=== PATIENT | female | born 1960 | race Caucasian/White ===

== ENCOUNTER 2017-01-30 07:43 | Emergency (ER) | payer OTHER ==
[2017-01-30 07:56] VITALS: BP 188/109
[2017-01-30] MEDS ORDERED: IBUPROFEN 400 MG TABLET PO ONE (08:11)
[2017-01-30] MEDS ORDERED: IBUPROFEN 400 MG TABLET ONE (08:14)
--- NOTE | 2017-01-30 08:24 | ERNOTE ---
Lower Extremity HPI - General Time Seen by Provider: 01/30/17 07:59 Source: patient Exam Limitations: no limitations - Immun/Allergies/Home Medications Immunizations: IMMUNIZATION HX Immunizations Up to Date Yes: unsure History of Influenza Vaccine No Hx Pneumococcal Vaccination No Allergies/Adverse Reactions: Allergies Allergy/AdvReac Type Severity Reaction Status Date / Time Norvasc Allergy Severe Other Uncoded 01/30/17 07:56 Home Medications: HOME MEDICATIONS ALPRAZolam [Xanax] 0.25 mg PO PRN PRN 01/30/17 [Last Taken Unknown] Eplerenone [Inspra] 25 mg PO DAILY 01/30/17 [Last Taken Unknown] Magnesium Oxide 100 mg PO DAILY 01/30/17 [Last Taken Unknown] Multivitamin [Multivitamins] 1 each PO DAILY 01/30/17 [Last Taken Unknown] Granger-3S/Dha/Epa/Fish Oil [Granger-3 Fish Oil 1,200 mg Sfgl] 1 tab PO DAILY [Last Taken Unknown] Prazosin HCl [Minipress] 1 mg PO HS 01/30/17 [Last Taken Unknown] Zinc 100 mg PO DAILY 01/30/17 [Last Taken Unknown] - History of Present Illness Narrative: pt comes into the ER for left hip pain and left knee pain for one week. she states that she has appointments for endocrinology and has seen nephrologists or her HTN. She has HTN and her BP is high today and when I offer her medication to control her BP she adamantly refulses. pain has been there for one week. She is unable to take NSAIDS, she smokes cigarettes Review of Systems - Review of Systems Constitutional: Present: no symptoms reported EYE: Present: no symptoms reported ENT: Present: no symptoms reported Respiratory: Present: no symptoms reported Cardiology: Present: no symptoms reported Gastrointestinal/Abdominal: Present: no symptoms reported Genitourinary: Present: no symptoms reported Musculoskeletal: Present: See HPI Skin: Present: no symptoms reported Neurological: Present: no symptoms reported - Patient's Past Medical History Patient History - Medical: Other Patient History - Cardiac/Respiratory: Hypertension Patient History - Cancer: No Hx of Cancer Patient History - Surgical Procedures: Cataracts Patient History - Other: None LMP (females 10-50): Menopausal - Social History Living Situations: significant other Abuse History: No History of abuse Psych History: No pertinent hx Smoking Status: Current every day smoker Have you smoked in the past 12 months: Yes Do you dip or chew tobacco: No Alcohol Use: occasionally Drug Use: none - Immunizations Immunizations Up to Date: Yes - unsure Hx Pneumococcal Vaccination: No History of Influenza Vaccine: No Physical Exam - Physical Exam General Appearance: Present: wd/wn, alert, no apparent distress Ears, Nose, Throat: Present: normal ENT inspection Neck: Present: normal inspection, nontender Respiratory: Present: no respiratory distress, normal breath sounds, no accessory muscle use, chest nontender, lungs clear Cardiovascular/Chest: Present: regular rate, rhythm, no murmur, normal peripheral pulses Extremity Exam: Present: normal inspection, non-tender, other - she does have some muscle spasm in the left lumbar region. She has full ROM of left hip and knee with no crepitus. No deformities noted on exam of these joints Neurological Exam: Present: alert, oriented, normal mood/affect, no motor/ sensory deficits ED Progress - Vital Signs Patient's Vital Signs:: I have reviewed the patient's vital signs. Vital Signs: Vital Signs 01/30/17 07:49 Temperature 36.7 C Pulse Rate 84 Respiratory 16 Rate Blood Pressure 188/109 O2 Sat by Pulse 95 Oximetry - X-Ray X-Ray #2 X-Ray: lumbosacral - Progress/Reassessment Chief Complaint: Lower Extremity Pain/ Injury Plan - Plan Plan: Patient's x-rays of the lumbosacral spine reveal extensive degenerative joint disease. Left hip x-rays within normal limits. Unfortunately due to her renal status and her hypertension the use of NSAIDs is not warranted or allowed. At this time we will go ahead and offer her Tylenol extra strength 1 tablet every 8 hours for pain and she is to follow-up with a academic manager. Departure Clinical Impression: Degenerative joint disease (DJD) of lumbar spine Qualifiers: Spinal osteoarthritis complication: unspecified spinal osteoarthritis Qualified Code(s): M47.816 - Spondylosis without myelopathy or radiculopathy, lumbar region - Departure Disposition: Home self-care Condition: Good Instructions: Osteoarthritis Additional Instructions: You may take acetaminophen, or Tylenol 500 mg 1 tablet by mouth every 6-8 hours for your pain. Please follow-up with your primary care physician or a academic manager in the area. Referrals: Carey Antony DO [Primary Care Provider] -
[2017-01-30] MEDS ORDERED: ACETAMINOPHEN 500 MG TABLET PO ONE (08:26)
--- OUTSIDE RECORDS SUMMARY | 2017-01-30 08:43 | XMS REPORT | Summary of Care ---
:1960 Author Organization [facility] Address [address] [place] [address] Care Team Providers Name Role Phone Mars Claire Stefano Primary Care Physician Encounter Date(s): 10/21/16 - 10/21/16 [facility], [address] [place] [address]- [facility] Discharge Disposition: Discharged to Home or Self Care Attending Physician: Preston Geiger MD Referring Physician: Preston Geiger MD Vital Signs No data available for this section Problem List Condition Effective Dates Status Health Status Informant Anxiety(Confirmed) Active HYPERTENSION(Confirmed) Active LABYRINTHITIS(Confirmed) Active Allergies, Adverse Reactions, Alerts No Known Medication Allergies Medications Aldactone 25 mg oral tablet 1 tab(s), Oral, Daily, # 30 tab(s), 5 Refill(s), Start Date: 12/20/14 11:49:00 CDT, Pharmacy: [place], [place] Start Date: 12/20/14 Stop Date: 03/04/15 Status: CompletedAldactone 25 mg oral tablet 1 tab(s), Oral, Daily, # 30 tab(s), 6 Refill(s), Start Date: 03/04/15 8:48:29 CDT, Pharmacy: [place], [place] Start Date: 03/04/15 Stop Date: 03/18/15 Status: CompletedAldactone 25 mg oral tablet 1 tab(s), Oral, BID, # 60 tab(s), 4 Refill(s), Start Date: 03/18/15 9:52:35 CDT , Pharmacy: [place], [place] Start Date: 03/18/15 Stop Date: 05/17/15 Status: DiscontinuedALPRAZolam 0.25 mg oral tablet 1 tab(s), Oral, TID, PRN for anxiety, 0 Refill(s), Start Date: 12/20/14 10:45: 00 CDT Start Date: 12/20/14 Status: OrderedamLODIPine 5 mg oral tablet 1 tab(s), Oral, Daily, # 30 tab(s), 5 Refill(s), Start Date: 12/20/14 11:49:00 CDT, Pharmacy: [place], [place] Start Date: 12/20/14 Stop Date: 06/26/15 Status: CompletedB-Complex with B-12 oral tablet 1 tab(s), Oral, Daily, # 30 tab(s), 0 Refill(s), Start Date: 06/26/15 10:14:00 CDT Start Date: 06/26/15 Status: Orderedchlorthalidone 25 mg oral tablet 1 tab(s), Oral, Daily, # 30 tab(s), 5 Refill(s), Start Date: 12/20/14 11:49:00 CDT, Pharmacy: [place] Start Date: 12/20/14 Stop Date: 06/26/15 Status: Completedchlorthalidone 25 mg oral tablet 1 tab(s), Oral, Daily, # 30 tab(s), 6 Refill(s), Start Date: 06/28/15 11:24:00 CDT, Pharmacy: [place] Start Date: 06/28/15 Stop Date: 10/02/16 Status: Completedchlorthalidone 25 mg oral tablet 1 tab(s), Oral, Daily, # 30 tab(s), 6 Refill(s), Start Date: 06/28/15 11:24:00 CDT Start Date: 06/28/15 Stop Date: 06/28/15 Status: DiscontinuedcloNIDine 0.1 mg oral tablet 1 tab(s), Oral, Daily, # 60 tab(s), 0 Refill(s), Start Date: 12/20/14 10:51:00 CDT Start Date: 12/20/14 Stop Date: 12/20/14 Status: Discontinueddigestive enzymes digestive enzymes, 1 tab, Oral, Daily, 0 Refill(s), Compound Start Date: 12/20/14 Stop Date: 06/26/15 Status: Completedeplerenone 25 mg oral tablet 1 tab(s), Oral, BID, # 60 tab(s), 5 Refill(s), Start Date: 06/26/15 10:56:28 CDT , Pharmacy: [place], [place] Start Date: 06/26/15 Stop Date: 07/19/15 Status: Completedeplerenone 25 mg oral tablet 1 tab(s), Oral, BID, # 60 tab(s), 11 Refill(s), Start Date: 07/19/15 8:47:11 [employer]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 , Pharmacy: [place], [place] Start Date: 07/19/15 Status: Orderedeplerenone 25 mg oral tablet 1 tab(s), Oral, Daily, # 30 tab(s), 5 Refill(s), Start Date: 05/16/15 11:49:00 CDT, Pharmacy: [place] Start Date: 05/16/15 Stop Date: 06/26/15 Status: Completedferrochel iron ferrochel iron, 18 mg=, Oral, MonWedFri, 0 Refill(s), Compound Start Date: 06/26/15 Status: OrderedFish Oil 500 mg oral capsule 1 cap(s), Oral, Daily, 0 Refill(s), Start Date: 11/14/14 16:03:00 CDT Start Date: 11/14/14 Stop Date: 06/26/15 Status: Completedfolic acid 0.8 mg oral tablet 1 tab(s), Oral, Daily, # 100 tab(s), 0 Refill(s), Start Date: 06/26/15 10:19:00 CDT Start Date: 06/26/15 Stop Date: 10/02/16 Status: CompletedGABA ZION, 250 mg=, Oral, Daily, 0 Refill(s), Compound Start Date: 02/28/15 Stop Date: 10/02/16 Status: CompletedGarlic 0 Refill(s), Start Date: 11/14/14 10:13:00 CDT Start Date: 11/14/14 Status: OrderedGlucosamine Chondroitin MSM Complex oral tablet 2 tab(s), Oral, Daily, # 90 tab(s), 0 Refill(s), Start Date: 12/20/14 10:48:00 CDT Start Date: 12/20/14 Stop Date: 06/26/15 Status: Completedholy basil holy basil, 400 mg=, Oral, HS, 0 Refill(s), Compound Start Date: 06/26/15 Status: Orderedhydrochlorothiazide 25 mg oral tablet 1 tab(s), Oral, Daily, # 30 tab(s), 0 Refill(s), Start Date: 11/14/14 10:20:00 CDT Start Date: 11/14/14 Stop Date: 11/14/14 Status: CompletedIlevro 0.3% ophthalmic suspension 1 drop(s), Eye-Left, HS, Begin 2 days prior, X 4 week(s), # 2 mL, 0 Refill(s), Start Date: 11/09/16 10:27:00 CDT, Pharmacy: [place], [place] Special Instructions: Begin 2 days prior Start Date: 11/09/16 Stop Date: 12/07/16 Status: OrderedKeflex 500 mg oral capsule 1 cap(s), Oral, QID, # 28 cap(s), 0 Refill(s), Start Date: 06/24/15 6:50:00 CDT , Pharmacy: [place], [place] Start Date: 06/24/15 Stop Date: 10/02/16 Status: Completedlisinopril 20 mg oral tablet 1 tab(s), Oral, Daily, # 30 tab(s), 0 Refill(s), Start Date: 11/14/14 10:21:00 CDT Start Date: 11/14/14 Stop Date: 12/20/14 Status: Completedlosartan 100 mg oral tablet 1 tab(s), Oral, BID, # 60 tab(s), 5 Refill(s), Start Date: 12/20/14 11:49:00 CDT , Pharmacy: [place], [place] Start Date: 12/20/14 Stop Date: 03/25/15 Status: Completedlosartan 25 mg oral tablet 1 tab(s), Oral, BID, # 60 tab(s), 6 Refill(s), Start Date: 03/25/15 10:13:00 CDT , Pharmacy: [place] Start Date: 03/25/15 Stop Date: 06/26/15 Status: Completedlosartan 25 mg oral tablet 1 tab(s), Oral, BID, 6 Refill(s), Start Date: 03/25/15 10:12:00 CDT Start Date: 03/25/15 Stop Date: 03/25/15 Status: Discontinuedlosartan-hydrochlorothiazide 100 mg-12.5 mg oral tablet 1 tab(s), Oral, Daily, # 30 tab(s), 0 Refill(s), Start Date: 11/14/14 15:57:00 CDT Start Date: 11/14/14 Stop Date: 12/20/14 Status: Completedlutein and bilbery lutein and bilbery, 1 tab, Oral, Daily, 0 Refill(s), Compound Start Date: 12/20/14 Stop Date: 10/02/16 Status: CompletedMACA DORIS, 500 mg=, Oral, Daily, 0 Refill(s), Compound Start Date: 02/28/15 Stop Date: 06/26/15 Status: Completedmeclizine 25 mg oral tablet 1 tab(s), Oral, Daily, # 30 tab(s), 0 Refill(s), Start Date: 11/14/14 10:21:00 CDT Start Date: 11/14/14 Stop Date: 12/20/14 Status: CompletedMelatonin 3 mg oral tablet 0.5 tab(s), Oral, HS, PRN for insomnia, # 60 tab(s), 0 Refill(s), Start Date: 10:21:00 CDT Start Date: 11/14/14 Status: Orderedmultivitamin 1 tab(s), Oral, Daily, 0 Refill(s), Start Date: 11/14/14 10:22:00 CDT Start Date: 11/14/14 Stop Date: 06/26/15 Status: Completedniacin 500 mg oral tablet 1 tab(s), Oral, Daily, # 180 tab(s), 0 Refill(s), Start Date: 06/26/15 10:16:00 CDT Start Date: 06/26/15 Stop Date: 10/02/16 Status: Completedphosphatidylserine phosphatidylserine, 1 tab, Oral, Daily, 0 Refill(s), Compound Start Date: 12/20/14 Stop Date: 06/26/15 Status: CompletedprednisoLONE acetate 1% ophthalmic suspension 1 drop(s), Eye-Left, QID, Begin day of surgery, X 4 week(s), # 5 mL, 0 Refill(s) , Start Date: 11/11/16 10:27:00 CDT, Pharmacy: [place] Special Instructions: Begin day of surgery Start Date: 11/11/16 Stop Date: 12/09/16 Status: Orderedred clove red clove, 1 tab, Oral, Daily, 0 Refill(s), Compound Start Date: 02/28/15 Stop Date: 06/26/15 Status: Completedrelacore extra relacore extra, 3 tab, Oral, qAM, 0 Refill(s), Compound Start Date: 12/20/14 Stop Date: 06/26/15 Status: Completedspironolactone 25 mg oral tablet 0.5 tab(s), Oral, qAM, 0 Refill(s), Start Date: 11/14/14 16:02:00 CDT Start Date: 11/14/14 Stop Date: 12/20/14 Status: CompletedStress B with C oral tablet 1 tab(s), Oral, Daily, # 30 tab(s), 0 Refill(s), Start Date: 06/26/15 10:18:00 CDT Start Date: 06/26/15 Status: Orderedtemplate non-formulary (medication) 0 Refill(s), Compound Start Date: 02/28/15 Stop Date: 06/26/15 Status: CompletedToprol-XL 100 mg oral tablet, extended release 1 tab(s), Oral, Daily, 0 Refill(s), Start Date: 11/14/14 15:59:00 CDT Start Date: 11/14/14 Stop Date: 06/26/15 Status: CompletedVigamox 0.5% ophthalmic solution See Instructions, 1 drop(s) Eye-Left QID 1 week then BID for 2 weeks, # 3 mL, 0 Refill(s), Start Date: 11/09/16 10:27:00 CDT, Pharmacy: [place] Special Instructions: 1 drop(s) Eye-Left QID 1 week then BID for 2 weeks Start Date: 11/09/16 Stop Date: 12/10/16 Status: Orderedvitamin A 10,000 units oral capsule 1 cap(s), Oral, Daily, # 90 cap(s), 0 Refill(s), Start Date: 06/26/15 10:20:00 CDT Start Date: 06/26/15 Stop Date: 10/02/16 Status: CompletedVitamin D3 2000 intl units oral capsule 1 cap(s), Oral, Daily, 0 Refill(s), Start Date: 11/14/14 16:03:00 CDT Start Date: 11/14/14 Stop Date: 12/20/14 Status: CompletedXanax 0.25 mg oral tablet 1 tab(s), Oral, TID, PRN for anxiety, 0 Refill(s), Start Date: 11/14/14 10:22: 00 CDT Start Date: 11/14/14 Stop Date: 11/14/14 Status: CompletedXanax 1 mg oral tablet 0.5 tab(s), Oral, q6hr, PRN for anxiety, 0 Refill(s), Start Date: 11/14/14 15:59 :00 CDT Start Date: 11/14/14 Stop Date: 12/20/14 Status: CompletedZinc 100 mg, Oral, Daily, 0 Refill(s), Start Date: 06/26/15 10:20:00 CDT Start Date: 06/26/15 Status: Ordered Results No data available for this section Immunizations No data available for this section Procedures No data available for this section Social History No data available for this section Assessment and Plan No data available for this section
--- OUTSIDE RECORDS SUMMARY | 2017-01-30 08:43 | XMS REPORT | Continuity of Care Document ---
:1960 Author Organization [facility] ([facility]) Address [address] [place] [address] Phone [phone] Care Team Providers Name Role Phone Antony Carey Primary Care Provider [phone] Source Comments This disclosure is being made pursuant to the Care Everywhere program, applicable federal and state laws, and may not contain all informaitonavailable regarding this patient.[facility] ([facility]) Active Allergies and Adverse Reactions No Known Allergies Current Medications Prescription Sig. Disp. Refills Start Date End Date Status ALPRAZOLAM 0.5 mg tablet 5 04/09/2015 Active HYDROCHLOROTHIAZIDE 25 mg Take 12.5 mg by 0 05/02/2015 Active tablet mouth daily Active Problems Problem Noted Date Holter monitor, abnormal 05/08/2015 Screening for malignant neoplasm of the cervix 12/05/2007 Other screening mammogram 12/05/2007 Unspecified symptom associated with female genital organs 10/29/2007 Other specified noninflammatory disorder of vagina 10/18/2007 Hypertension Tobacco abuse Social History Tobacco Use Types Packs/Day Years Used Date Current Every Day Smoker Tobacco Cessation:Ready to Quit: No; Counseling Given: Yes Comments: Last Filed Vital Signs Vital Sign Reading Time Taken Blood Pressure 178/110 05/07/2015 9:18 AM CDT Pulse 82 05/07/2015 9:18 AM CDT Temperature 36.8 C (98.24 F) 12/05/2007 3:12 PM CDT Respiratory Rate 16 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 Height 1.702 m (5' 7.01") 05/07/2015 9:18 AM CDT Weight 62.143 kg (137 lb) 05/07/2015 9:18 AM CDT Body Mass Index 21.45 05/07/2015 9:18 AM CDT Oxygen Saturation - - Plan of Care Date Type Specialty Providers Description 03/24/2017 Appointment Diabetes Services Jana Manriquez MD Chief Comp: Patient [address] [place] [address] Visit [phone] (Fax) Health Maintenance Due Date Last Done Comments HCV Screening 1960 Hepatitis B Vaccine (1 of 3 - Primary Series) 1960 Tdap Vaccine 1971 Lipid Disorder Screening 1978 MMR Vaccine 1978 Td Vaccine 1978 Pneumococcal Vaccine (1 of 1 - PPSV23) 1979 Mammogram 2000 Colonoscopy 2010 Cervical Cancer Screening 12/04/2010 12/05/2007 Influenza Vaccine: Seasonal (Season Ended) 2017 Results from Last 3 Months Not on file
--- OUTSIDE RECORDS SUMMARY | 2017-01-30 08:44 | XMS REPORT | Summary of Care ---
:1960 Author Organization [facility] Address [address] [place] [address] Care Team Providers Name Role Phone Mars Claire Stefano Primary Care Physician Encounter Date(s): 10/02/16 - 10/02/16 [facility], [address] [place] [address]- [facility] Discharge Disposition: Discharged to Home or Self [...] Refill(s), Start Date: 12/20/14 11:49:00 CDT, Pharmacy: [place], [place] Start Date: 12/20/14 Stop Date: 03/04/15 Status: CompletedAldactone 25 mg oral tablet 1 tab(s), Oral, Daily, # 30 tab(s), 6 Refill(s), Start Date: 03/04/15 8:48:29 CDT, Pharmacy: [place], [place] Start Date: 03/04/15 Stop Date: 03/18/15 Status: CompletedAldactone 25 mg oral tablet 1 tab(s), Oral, BID, # 60 tab(s), 4 Refill(s), Start Date: 03/18/15 9:52:35 CDT , Pharmacy: [place] Start Date: 03/18/15 Stop Date: 05/17/15 Status: DiscontinuedALPRAZolam 0.25 mg oral tablet 1 tab(s), Oral, TID, PRN for anxiety, 0 Refill(s), Start Date: 12/20/14 10:45: 00 CDT Start Date: 12/20/14 Status: OrderedamLODIPine 5 mg oral tablet 1 tab(s), Oral, Daily, # 30 tab(s), 5 Refill(s), Start Date: 12/20/14 11:49:00 CDT, Pharmacy: [place] Start Date: 12/20/14 Stop Date: 06/26/15 Status: CompletedB-Complex with B-12 oral tablet 1 tab(s), Oral, Daily, # 30 tab(s), 0 Refill(s), Start Date: 06/26/15 10:14:00 CDT Start Date: 06/26/15 Status: Orderedchlorthalidone 25 mg oral tablet 1 tab(s), Oral, Daily, # 30 tab(s), 5 Refill(s), Start Date: 12/20/14 11:49:00 CDT, Pharmacy: [place] Start Date: 12/20/14 Stop Date: 06/26/15 Status: Completedchlorthalidone 25 mg oral tablet 1 tab(s), Oral, Daily, # 30 tab(s), 6 Refill(s), Start Date: 06/28/15 11:24:00 CDT, Pharmacy: [place] Start Date: 06/28/15 Stop Date: 10/02/16 [...] Start Date: 06/26/15 10:56:28 CDT , Pharmacy: [place] Start Date: 06/26/15 Stop Date: 07/19/15 Status: Completedeplerenone 25 mg oral tablet 1 tab(s), Oral, BID, # 60 tab(s), 11 Refill(s), Start Date: 07/19/15 8:47:11 LAMINATION SPINNER , Pharmacy: [place] Start Date: 07/19/15 Status: Orderedeplerenone 25 mg oral tablet 1 tab(s), Oral, Daily, # 30 tab(s), 5 Refill(s), Start Date: 05/16/15 11:49:00 CDT, Pharmacy: [place] Start Date: 05/16/15 Stop Date: 06/26/15 [...] Start Date: 11/14/14 Stop Date: 11/14/14 Status: CompletedKeflex 500 mg oral capsule 1 cap(s), Oral, QID, # 28 cap(s), 0 Refill(s), Start Date: 06/24/15 6:50:00 CDT , Pharmacy: [place] Start Date: 06/24/15 Stop Date: 10/02/16 Status: Completedlisinopril 20 mg oral tablet 1 tab(s), Oral, Daily, # 30 tab(s), 0 Refill(s), Start Date: 11/14/14 10:21:00 CDT Start Date: 11/14/14 Stop Date: 12/20/14 Status: Completedlosartan 100 mg oral tablet 1 tab(s), Oral, BID, # 60 tab(s), 5 Refill(s), Start Date: 12/20/14 11:49:00 CDT , Pharmacy: [place] Start Date: 12/20/14 Stop Date: 03/25/15 Status: Completedlosartan 25 mg oral tablet 1 tab(s), Oral, BID, # 60 tab(s), 6 Refill(s), Start Date: 03/25/15 10:13:00 CDT , Pharmacy: [place] Start Date: 03/25/15 Stop Date: 06/26/15 [...] Start Date: 12/20/14 Stop Date: 06/26/15 Status: Completedred clove red clove, 1 tab, Oral, Daily, [...] Start Date: 11/14/14 Stop Date: 06/26/15 Status: Completedvitamin A 10,000 units oral capsule 1 cap(s), [...]
== END 2017-01-30 08:41 | disposition home or self-care (01) ==
LOC: ER 07:43
DX: M47.816 Spondylosis without myelopathy or radiculopathy, lumbar region (principal); I10 Essential (primary) hypertension; Z72.0 Tobacco use